=== PATIENT | female | born 1990 ===

== ENCOUNTER 2018-03-18 14:00 | Inpatient (IN) | payer OTHER ==
[~2018-03-18] VITALS: Ht 167.6 cm; Wt 47.6 kg
== END 2018-03-26 09:15 | DRG 743 ==
LOC: OB/GYN 03-23 05:44 → O/R 03-23 05:44 → OB/GYN 03-23 10:13 → SURG 03-23 14:00 → OB/GYN 03-26 09:15
PROVIDERS: Obstetrics & Gynecology
PROC: 0UT00ZZ Resection of Right Ovary, Open Approach (ICD-10-PCS; 2018-03-23)
PROC: 0UB00ZZ Excision of Right Ovary, Open Approach (ICD-10-PCS; 2018-03-23)
PROC: 0UT50ZZ Resection of Right Fallopian Tube, Open Approach (ICD-10-PCS; principal; 2018-03-23 07:00)
DX: D27.0 Benign neoplasm of right ovary (principal)